=== PATIENT | male | born 1975 ===

== ENCOUNTER 2016-04-30 06:42 | Emergency (ER) | payer OTHER, SELFPAY ==
[2016-04-30 06:47] VITALS: RESP 18; O2SAT 99
[2016-04-30] MEDS ORDERED: Sodium Chloride 0.9% 1,000 ML IV ONE (07:15)
--- NOTE | 2016-04-30 07:21 | C.PDOC ---
History Of Present Illness 40 y/o male, whose PMHx includes hypertension and diabetes, presents to the ED complaining of epigastric abdominal pain x 3 days with associated vomiting and diarrhea. Patient denies fevers or other complaints. Time Seen by Provider: 04/30/16 07:12 Chief Complaint (Nursing): Abdominal Pain History Per: Patient History/Exam Limitations: no limitations Onset/Duration Of Symptoms: Days (3), Gradual, Persistent Current Symptoms Are (Timing): Still Present Location Of Pain/Discomfort: Epigastric Radiation Of Pain To:: None Associated Symptoms: Vomiting, Diarrhea Recent travel outside of the [place]: No Past Medical History Reviewed: Historical Data, Nursing Documentation, Vital Signs Vital Signs: Last Vital Signs Temp 97.4 F L 04/30/16 06:45 Pulse 92 H 04/30/16 06:45 Resp 18 04/30/16 06:45 BP 124/81 04/30/16 06:45 Pulse Ox 99 04/30/16 07:22 - Medical History PMH: Diabetes, HTN Surgical History: No Surg Hx Family History: States: Unknown Family Hx - Social History Hx Tobacco Use: No Hx Alcohol Use: No Hx Substance Use: No - Immunization History Hx Tetanus Toxoid Vaccination: No Hx Influenza Vaccination: No Hx Pneumococcal Vaccination: No Review Of Systems Except As Marked, All Systems Reviewed And Found Negative. Constitutional: Negative for: Fever Gastrointestinal: Positive for: Vomiting, Abdominal Pain, Diarrhea Physical Exam - Physical Exam Appears: Non-toxic, No Acute Distress Skin: Normal Color, Warm, Dry Head: Atraumatic, Normacephalic Eye(s): bilateral: Normal Inspection, PERRL Oral Mucosa: Moist Neck: Normal ROM, Supple Chest: Symmetrical Cardiovascular: Rhythm Regular Respiratory: Normal Breath Sounds, No Rales, No Rhonchi, No Wheezing Gastrointestinal/Abdominal: Soft, Tenderness (epigastric), No Guarding, No Rebound Back: Normal Inspection, No CVA Tenderness Extremity: Normal ROM Neurological/Psych: Oriented x3, Normal Speech, Normal Cognition ED Course And Treatment - Laboratory Results Result Diagrams: 04/30/16 07:35 04/30/16 07:35 O2 Sat by Pulse Oximetry: 99 (ra) Pulse Ox Interpretation: Normal Medical Decision Making Medical Decision Making: consider gastritis, pud, pancreatitis- labs imaging pain control fluids reassess 830: pt reassesed. pt states all symptoms resolved. ua pending. labs unremarkable. Disposition - Disposition Referrals: [facility] [Outside] [facility] [Outside] Basil Romero MD [Staff Provider] - Disposition: HOME/ ROUTINE Disposition Time: 08:34 Condition: STABLE Additional Instructions: please follow up with your doctor/clinic and specialist. return to er with worsening symptoms or concerns Prescriptions: Famotidine [Pepcid] 20 mg PO DAILY #20 tab Instructions: Acute Abdominal Pain (ED) - Clinical Impression Clinical Impression: Abdominal pain - Scribe Statement The provider has reviewed the documentation as recorded by the Scribe (Rufina Weems) Provider Attestation: All medical record entries made by the Scribe were at my direction and personally dictated by me. I have reviewed the chart and agree that the record accurately reflects my personal performance of the history, physical exam, medical decision making, and the department course for this patient. I have also personally directed, reviewed, and agree with the discharge instructions and disposition.
[2016-04-30] MEDS ORDERED: Sodium Chloride 0.9% 1,000 ML ONE (07:26)
[2016-04-30 07:49] LABS: BASO % 0.5 % (0.0-2.0); EOS # 0.1 K/uL (0.0-0.7); EOS % 2.3 % (0.0-4.0); HEMATOCRIT 45.4 % (35.0-51.0); LYMPH # 1.7 K/uL (1.0-4.3); LYMPH % 26.9 % (20.0-40.0); MEAN CELL VOLUME 85.7 fL (80.0-94.0); MEAN CORPUSCULAR HEMOGLOBIN 28.8 pg (27.0-31.0); MEAN CORPUSCULAR HGB CONC 33.6 g/dL (33.0-37.0); MEAN PLATELET VOLUME 9.4 fL (7.2-11.7); MONO # 0.5 K/uL (0.0-0.8); MONO % 7.9 % (0.0-10.0); NRBC % 0.1 % (0.0-2.0); WHITE BLOOD COUNT 6.4 K/uL (4.8-10.8)
[2016-04-30 07:58] LABS: CHLORIDE 96 mmol/L (98-107); POTASSIUM 4.1 mmol/L (3.6-5.2); SODIUM 137 mmol/L (132-148)
[2016-04-30 08:00] LABS: ALB/GLOB RATIO 1.3 (1.0-2.1); AST/SGOT 22 U/L (17-59); BILIRUBIN,TOTAL 2.3 mg/dL (0.2-1.3); CARBON DIOXIDE 26 mmol/L (22-30); GFR AFRICAN-AMERICAN > 60; TOTAL PROTEIN 8.2 g/dL (6.3-8.3)
[2016-04-30 08:01] LABS: ALKALINE PHOSPHATASE 117 U/L (38-126); ALT/SGPT 33 U/L (21-72); BLOOD UREA NITROGEN 10 mg/dL (9-20); CALCIUM 9.3 mg/dl (8.6-10.4); GLUCOSE,RANDOM 210 mg/dL (75-110)
[2016-04-30 08:44] LABS: RBC URINE 1 /hpf (0-3); URINE BILIRUBIN NEGATIVE (NEGATIVE); URINE BLOOD NEGATIVE (NEGATIVE); URINE COLOR Amber (YELLOW); URINE GLUCOSE (UA) 1+ mg/dL (Normal); URINE KETONE NEGATIVE (NEGATIVE); URINE LEUKOCYTE ESTERASE NEG Leu/uL (Negative); URINE PROTEIN NEGATIVE (NEGATIVE); URINE UROBILINOGEN NORMAL mg/dL (0.2-1.0); WBC URINE 3 /hpf (0-5)
[2016-04-30 09:34] VITALS: BP 109/77; PULSE 68; TEMP 98.4
--- NOTE | 2016-05-03 09:30 | CARD ---
APPROVED REPORT EKG Measurement Heart [id number] [id number] <Conclusion> Normal sinus rhythm Normal ECG
== END 2016-04-30 09:35 | disposition home or self-care (01) ==
LOC: C.ER 06:42
DX: R10.13 Epigastric pain (principal)

== ENCOUNTER 2016-08-28 05:10 | Emergency (ER) | payer OTHER ==
--- NOTE | 2016-08-28 05:32 | C.PDOC ---
History Of Present Illness 41M c/o gradual onset headache for 5 days. he saw his pcp 2 days ago and was given IM injection which helped but then bird came back yesterday. taking advil and "migraine" medicine at home without relief. had similar headache twice before in the last 3 years. was seen here in 2014 for similar bird and had normal CT at that time. denies etoh or drugs. Time Seen by Provider: 08/28/16 05:28 Chief Complaint (Nursing): Headache Past Medical History Vital Signs: Last Vital Signs Temp 97.4 F L 08/28/16 05:21 Pulse 93 H 08/28/16 05:21 Resp 16 08/28/16 05:21 BP 129/79 08/28/16 05:21 Pulse Ox 99 08/28/16 05:56 - Medical History PMH: Diabetes, HTN, Hyperlipidemia Family History: States: Other Other Family History: nc - Social History Hx Tobacco Use: No Hx Alcohol Use: No Hx Substance Use: No - Immunization History Hx Tetanus Toxoid Vaccination: No Hx Influenza Vaccination: No Hx Pneumococcal Vaccination: No Review Of Systems Constitutional: Negative for: Fever, Chills Eyes: Negative for: Vision Change Cardiovascular: Negative for: Chest Pain Respiratory: Negative for: Cough, Shortness of Breath Gastrointestinal: Negative for: Nausea, Vomiting Neurological: Positive for: Headache. Negative for: Weakness, Numbness, Confusion, Seizures, Altered Mental Status Physical Exam - Physical Exam Appears: Well, Non-toxic, No Acute Distress Skin: Warm, Dry Head: Atraumatic Eye(s): bilateral: PERRL, EOMI Oral Mucosa: Moist Cardiovascular: Rhythm Regular Respiratory: No Accessory Muscle Use Neurological/Psych: Oriented x3, Normal Cognition, Normal Cranial Nerves, No Cerebellar Signs, Normal Motor, Normal Sensation, Other (no focal deficits) Gait: Steady ED Course And Treatment O2 Sat by Pulse Oximetry: 99 Medical Decision Making Medical Decision Makinam the pt is sleeping. upon waking he reports improvement in his headache and is comfortable w dc. he has f/u w neurology next month. Disposition - Disposition Disposition: HOME/ ROUTINE Disposition Time: 06:47 Condition: IMPROVED - Clinical Impression Clinical Impression: Headache
[2016-08-28] MEDS ORDERED: DiphenhydrAMINE 50 mg/ml Inj IVP STA (05:50)
[2016-08-28] MEDS ORDERED: Sodium Chloride 0.9% 1,000 ML IV ONE (05:50)
[2016-08-28 06:57] VITALS: BP 110/70; PULSE 75; RESP 18; TEMP 97.8; O2SAT 98
== END 2016-08-28 07:00 | disposition home or self-care (01) ==
LOC: C.ER 05:10
DX: R51 Headache (principal)
CPT/HCPCS: 96361; 96374; 96375; 99284; J1200; J1885; J2765; J7040

== ENCOUNTER 2018-04-08 07:34 | Outpatient (CLI) | payer OTHER | END 2018-04-08 07:35 | disposition home or self-care (01) | LOC: C.LAB 07:34 ==

== ENCOUNTER 2018-04-15 08:20 | Outpatient (CLI) | payer SELFPAY | END 2018-04-15 08:21 | disposition home or self-care (01) | LOC: C.USIC 08:20 ==